=== PATIENT | female | born 1950 | race Caucasian/White ===

== ENCOUNTER 2017-01-31 19:13 | Emergency (ER) | payer MEDICARE, MEDICAID ==
[~2017-01-31] VITALS: Ht 152.4 cm; Wt 66.0 kg
[2017-01-31] MEDS ORDERED: LEVO25TA9 PO (19:15)
[2017-01-31] MEDS ORDERED: METO25 PO (19:15)
[2017-01-31] MEDS ORDERED: LOSA50TA37 PO (19:15)
[2017-01-31] MEDS ORDERED: AMLO-511 PO (19:15)
[2017-01-31] MEDS ORDERED: IBUPROFEN 600 MG TABLET PO ONE (20:00)
[2017-01-31] MEDS ORDERED: ACETAMINOPHEN 325 MG TABLET PO ONE (20:00)
[2017-01-31 21:22] VITALS: BP 130/70
== END 2017-01-31 21:27 | disposition home or self-care (01) ==
LOC: EMS 19:16
DX: G50.0 Trigeminal neuralgia (principal); I10 Essential (primary) hypertension; E03.9 Hypothyroidism, unspecified
CPT/HCPCS: 70450; 99284